=== PATIENT | male | born 1955 | race African-American/Black ===

== ENCOUNTER 2017-02-12 19:18 | Emergency (ER) | payer BC, OTHER ==
[~2017-02-12] VITALS: Ht 182.9 cm; Wt 127.0 kg
[2017-02-12 19:18] VITALS: BP_SYST 150
--- NOTE | 2017-02-12 20:42 | NUR ---
Pt to bed 3 with family
--- NOTE | 2017-02-12 20:56 | NUR ---
ER at bedside examining patient.
[2017-02-12] MEDS ORDERED: KETOROLAC TROMETHAMINE 30 MG VIAL IVP ONE (21:00)
[2017-02-12] MEDS ORDERED: NACL 0.9% 1,000 ML IV ONE (21:00)
--- NOTE | 2017-02-12 21:00 | NUR ---
Pt states that he has been having lethargy with nausea/vomitting and dysuria for one day. Pt appears lethargic and is having 6/10 body pain. Pt states he feels weak. Pt has a low grade fever here. AAOx4. Will continue to monitor. No other injuries or complaints mentioned/noted. No distress noted.
[2017-02-12 22:01] LABS: MEAN CORPUSCULAR HEMOGLOBIN 28 pg (27-31)
[2017-02-12 22:05] LABS: HEMATOCRIT 47.2 % (36-54); HEMOGLOBIN 15.5 g/dL (14.0-18.0); MEAN CORPUSCULAR HGB CONC 33 % (32-36); MEAN CORPUSCULAR VOLUME 84 fL (79.0-98.0); PLATELET COUNT (AUTO) 130 K/uL (130-430); RED BLOOD CELL COUNT(AUTO) 5.61 MIL/uL (4.2-6.2); RED CELL DISTRIBUTION WIDTH 14.9 % (9.0-15.0); WHITE BLOOD COUNT (AUTO) 16.9 K/uL (4.8-10.8)
[2017-02-12 22:06] LABS: CALCIUM 8.9 mg/dL (8.4-11.0); CREATININE 2.24 mg/dL (0.55-1.30); POTASSIUM 3.3 mmol/L (3.5-5.1)
[2017-02-12 22:08] LABS: INR 2.2 (0.80-1.20); PROTHROMBIN TIME 24.7 SECS (9.5-12.5)
--- NOTE | 2017-02-12 22:10 | NUR ---
Patient reports pain 0/10. No adverse reactions noted. Will continue to monitor.
--- NOTE | 2017-02-12 22:10 | NUR ---
[facility] in [facility] - 02/13/17 at 0455 by ASHUTOSH 6
[2017-02-12 22:11] LABS: ALBUMIN 3.5 g/dL (3.4-4.8); TOTAL BILIRUBIN 0.8 mg/dL (0.0-1.0); TOTAL PROTEIN, SERUM 7.7 g/dL (6.4-8.3)
[2017-02-12 22:41] LABS: BILIRUBIN,URINE NEGATIVE (NEGATIVE); BLOOD, URINE 3+ (NEGATIVE); CLARITY/URINE CLEAR (CLEAR); COLOR,URINE YELLOW (YELLOW); GLUCOSE,URINE NEGATIVE (NEGATIVE); KETONES,URINE NEGATIVE (NEGATIVE); LEUKOCYTE ESTERASE ,URINE NEGATIVE (NEGATIVE); NITRITE, URINE NEGATIVE (NEGATIVE); PROTEIN URINE 2+ (NEGATIVE); UROBILINOGEN,URINE 0.2 (0.2-1.0)
[2017-02-12 23:05] LABS: BACTERIA,URINE FEW /HPF (None Seen); WBC,URINE 0-3 /HPF (0-3)
[2017-02-12 23:06] LABS: MUCUS,URINE 1+ /LPF (None Seen); URINE AMORPHOUS URATE 1+ /HPF (None Seen)
[2017-02-12 23:13] LABS: ATYPICAL LYMPHOCYTES % 0 % (0-0); BAND % (MANUAL) 3 % (0-6); BASOPHILS % (MANUAL) 0 % (0-2); EOSINOPHILS % (MANUAL) 0 % (0-7); LYMPHOCYTES % (MANUAL) 8 % (20-46); MONOCYTES % (MANUAL) 5 % (0-11)
[2017-02-12] MEDS ORDERED: PIPERACILLIN/TAZO 3.375 GM in NS 50 ML IV ONE (23:30)
--- NOTE | 2017-02-12 23:30 | NUR ---
Reviewed sepsis protocol with Dr. Saunders. Asked if he would like lactic as well. No change in orders at this time.
[2017-02-12] MEDS ORDERED: PIPERACILLIN/TAZOBACTAM 3.375 GM/VIAL (ZOSYN) IV ONE (23:42)
--- NOTE | 2017-02-13 | NUR ---
IV Abx infusing without difficulty, no redness or swelling noted at site
--- NOTE | 2017-02-13 00:15 | NUR ---
Patient reports pain 0/10. No adverse reactions noted. Will continue to monitor.
--- NOTE | 2017-02-13 01:00 | NUR ---
Pt is sleeping comfortably in bed. Pt reports no pain at this time. No nausea or vomitting. Will continue to monitor. No distress noted.
[2017-02-13] MEDS ORDERED: WARF5TAB2 PO (01:42)
[2017-02-13] MEDS ORDERED: LOSA1TAB35 PO (01:42)
[2017-02-13] MEDS ORDERED: NOR10 PO (01:42)
[2017-02-13] MEDS ORDERED: CARV25TA55 PO (01:42)
--- NOTE | 2017-02-13 04:50 | NUR ---
Patient to be transferred to [facility]. Is being transferred due to higher level of care. Receiving facility has accepting physician and available space. ER physician has signed transfer form. Patient or responsible libertarian has agreed to transfer and signed form. Patient belongings inventoried and will be sent with patient. Copy of nursing notes, lab reports, EKG, Physicians Orders and X-rays to be sent with patient. Report called to Shira SILVA at receiving facility. Receiving physician is Dr. Iniguez. [facility] ambulance service has been called for transfer. ETA is 30 min.
[2017-02-13 05:30] VITALS: BP_SYST 128
== END 2017-02-13 05:30 | disposition short-term general hospital (02) ==
LOC: SED 19:18
DX: N12 Tubulo-interstitial nephritis, not specified as acute or chronic (principal); J45.909 Unspecified asthma, uncomplicated; Z79.899 Other long term (current) drug therapy
CPT/HCPCS: 36415; 71010; 74020; 74176; 80053; 81000; 85007; 85027; 85610; 85730; 87040; 96361; 96365; 96375; 99285; J1885; J2543

== ENCOUNTER 2018-08-21 18:13 | Inpatient (IN) | payer BC ==
[~2018-08-21] VITALS: Ht 182.9 cm; Wt 118.8 kg
[~2018-08-21 18:13] MED LIST: CARV25TA55 PO; LOSA1TAB40 PO; NOR10 PO; WARF5TAB2 PO
[2018-08-21 18:33] VITALS: BP_SYST 146
[2018-08-21] MEDS ORDERED: METO50TA7 PO ×2 (18:59→21:36)
[2018-08-21] MEDS ORDERED: FLUT1DIS3 IH (18:59)
[2018-08-21 19:34] LABS: BASOPHILS # (AUTO) 0.3 K/uL (0.0-0.2); EOSINOPHILS # (AUTO) 0.1 K/uL (0.0-0.4); EOSINOPHILS % (AUTO) 0.9 % (0.0-4.0); HEMATOCRIT 48.1 % (36-54); HEMOGLOBIN 15.8 g/dL (14.0-18.0); LYMPHOCYTES # (AUTO) 1.6 K/uL (1.0-5.5); LYMPHOCYTES % (AUTO) 20.5 % (20.5-51.5); MEAN CORPUSCULAR HEMOGLOBIN 28 pg (27-31); MEAN CORPUSCULAR HGB CONC 33 % (32-36); MEAN CORPUSCULAR VOLUME 85 fL (79.0-98.0); MONOCYTES # (AUTO) 0.6 K/uL (0.0-1.0); MONOCYTES % (AUTO) 7.3 % (1.7-9.3); NEUTROPHILS % (AUTO) 67.3 % (40.0-70.0); PLATELET COUNT (AUTO) 233 K/uL (130-430); RED BLOOD CELL COUNT(AUTO) 5.69 MIL/uL (4.2-6.2); RED CELL DISTRIBUTION WIDTH 15.8 % (9.0-15.0); WHITE BLOOD COUNT (AUTO) 7.6 K/uL (4.8-10.8)
[2018-08-21 19:39] LABS: CALCIUM 8.8 mg/dL (8.4-11.0); CREATININE 2.07 mg/dL (0.55-1.30); POTASSIUM 4.5 mmol/L (3.5-5.1)
[2018-08-21 19:48] LABS: ALBUMIN 2.8 g/dL (3.4-4.8); TOTAL BILIRUBIN 0.5 mg/dL (0.0-1.0)
[2018-08-21] MEDS ORDERED: FLO44 INH (21:36)
[2018-08-21] MEDS ORDERED: WARF5TAB2 PO (21:36)
[2018-08-21] MEDS ORDERED: ENALAPRILAT DIHYDRATE 1.25 MG/ML VIAL IVP ONE (22:00)
[2018-08-21 22:10] LABS: BILIRUBIN,URINE NEGATIVE (NEGATIVE); BLOOD, URINE 2+ (NEGATIVE); CLARITY/URINE CLEAR (CLEAR); COLOR,URINE YELLOW (YELLOW); GLUCOSE,URINE NEGATIVE (NEGATIVE); KETONES,URINE 1+ (NEGATIVE); LEUKOCYTE ESTERASE ,URINE NEGATIVE (NEGATIVE); NITRITE, URINE NEGATIVE (NEGATIVE); PROTEIN URINE 2+ (NEGATIVE); UROBILINOGEN,URINE 0.2 (0.2-1.0)
[2018-08-21] MEDS ORDERED: FUROSEMIDE 40 MG/4 ML VIAL IVP ONE (22:15)
[2018-08-21] MEDS ORDERED: ENALAPRILAT DIHYDRATE 1.25 MG/ML VIAL ONE (22:24)
[2018-08-21 23:03] LABS: BACTERIA,URINE FEW /HPF (None Seen); WBC,URINE 0-3 /HPF (0-3)
[2018-08-21] MEDS ORDERED: cefTRIAXone 1 GM IVPB PREMIX 50 ML IV ONE (23:15)
[2018-08-22] VITALS (9 sets, daily range): BP systolic 121–161
[2018-08-22] MEDS ORDERED: ONDANSETRON HCL 4 MG/2 ML VIAL IVP PRN (00:15)
[2018-08-22] MEDS ORDERED: ACETAMINOPHEN 325 MG TABLET PO PRN (00:15)
[2018-08-22] MEDS ORDERED: ALBUTEROL SULFATE 0.083% 2.5 MG/3 ML VIAL.NEB INH PRN (00:15)
[2018-08-22] MEDS ORDERED: MORPHINE 4 MG/ML INJ. SYRINGE IVP PRN (00:15)
[2018-08-22] MEDS: NORMAL SALINE 5 ML DISP.SYRIN IVF SCH ×3 (05:23→20:42)
[2018-08-22 07:27] LABS: CALCIUM 9.1 mg/dL (8.4-11.0); CREATININE 1.86 mg/dL (0.55-1.30); POTASSIUM 3.9 mmol/L (3.5-5.1)
[2018-08-22 07:36] LABS: ALBUMIN 2.9 g/dL (3.4-4.8); TOTAL BILIRUBIN 0.7 mg/dL (0.0-1.0)
[2018-08-22 07:44] LABS: BASOPHILS # (AUTO) 0.1 K/uL (0.0-0.2); BASOPHILS % (AUTO) 1.2 % (0.0-2.0); EOSINOPHILS # (AUTO) 0.1 K/uL (0.0-0.4); EOSINOPHILS % (AUTO) 0.8 % (0.0-4.0); HEMATOCRIT 47.5 % (36-54); HEMOGLOBIN 15.1 g/dL (14.0-18.0); LYMPHOCYTES # (AUTO) 1.6 K/uL (1.0-5.5); LYMPHOCYTES % (AUTO) 21.6 % (20.5-51.5); MEAN CORPUSCULAR HEMOGLOBIN 27 pg (27-31); MEAN CORPUSCULAR HGB CONC 32 % (32-36); MEAN CORPUSCULAR VOLUME 85 fL (79.0-98.0); MONOCYTES # (AUTO) 0.5 K/uL (0.0-1.0); MONOCYTES % (AUTO) 7.1 % (1.7-9.3); NEUTROPHILS # (AUTO) 4.9 K/uL (1.8-7.7); NEUTROPHILS % (AUTO) 69.3 % (40.0-70.0); RED BLOOD CELL COUNT(AUTO) 5.61 MIL/uL (4.2-6.2); RED CELL DISTRIBUTION WIDTH 15.4 % (9.0-15.0); WHITE BLOOD COUNT (AUTO) 7.2 K/uL (4.8-10.8)
[2018-08-22 07:48] LABS: PLATELET COUNT (AUTO) 207 K/uL (130-430)
[2018-08-22 07:50] LABS: INR 2.4 (0.80-1.20); PROTHROMBIN TIME 23.3 SECS (9.5-12.5)
[2018-08-22] MEDS ORDERED: FLUTICASONE 250 mCg/SALMETEROL 50 mCg DISKUS W.DEV INH SCH (09:00)
[2018-08-22] MEDS ORDERED: FUROSEMIDE 40 MG/4 ML VIAL IVP SCH (09:00)
[2018-08-22] MEDS ORDERED: METOPROLOL SUCCINATE 50 MG TAB.SR.24H (TOPROL XL) PO ONE (09:30)
[2018-08-22] MEDS: FLUTICASONE/VILANTEROL 1 EACH BLST.W.DEV INH SCH (09:43)
[2018-08-22] MEDS: FUROSEMIDE 100 MG in D5W 90 ML IV SCH (10:26)
[2018-08-22] MEDS ORDERED: WARFARIN SODIUM 7.5 MG TABLET PO SCH (18:00)
[2018-08-22] MEDS ORDERED: WARFARIN SODIUM 5 MG TABLET PO SCH (18:00)
[2018-08-22] MEDS: METOPROLOL SUCCINATE 50 MG TAB.SR.24H (TOPROL XL) PO SCH (20:42)
[2018-08-22] MEDS ORDERED: FUROSEMIDE 20 MG/2 ML VIAL ONE (23:55)
[2018-08-22] MEDS ORDERED: FUROSEMIDE 40 MG/4 ML VIAL ONE (23:56)
[2018-08-23] MEDS: FUROSEMIDE 100 MG in D5W 90 ML IV SCH ×2 (01:03→22:14)
[2018-08-23] MEDS: NORMAL SALINE 5 ML DISP.SYRIN IVF SCH ×3 (05:45→20:30)
[2018-08-23 07:12] LABS: INR 2.2 (0.80-1.20); PROTHROMBIN TIME 21.4 SECS (9.5-12.5)
[2018-08-23] MEDS ORDERED: WARFARIN SODIUM 3 MG TABLET PO SCH (07:37)
[2018-08-23 08:00] VITALS: BP_SYST 139
[2018-08-23] MEDS: FLUTICASONE/VILANTEROL 1 EACH BLST.W.DEV INH SCH (08:00)
[2018-08-23] MEDS: METOPROLOL SUCCINATE 50 MG TAB.SR.24H (TOPROL XL) PO SCH ×2 (08:00→20:30)
[2018-08-23 11:57] LABS: BASOPHILS # (AUTO) 0.1 K/uL (0.0-0.2); BASOPHILS % (AUTO) 1.8 % (0.0-2.0); EOSINOPHILS # (AUTO) 0.2 K/uL (0.0-0.4); EOSINOPHILS % (AUTO) 3.6 % (0.0-4.0); HEMATOCRIT 50.4 % (36-54); HEMOGLOBIN 16.6 g/dL (14.0-18.0); LYMPHOCYTES # (AUTO) 1.6 K/uL (1.0-5.5); MEAN CORPUSCULAR HEMOGLOBIN 28 pg (27-31); MEAN CORPUSCULAR HGB CONC 33 % (32-36); MEAN CORPUSCULAR VOLUME 84 fL (79.0-98.0); MONOCYTES # (AUTO) 0.5 K/uL (0.0-1.0); MONOCYTES % (AUTO) 6.9 % (1.7-9.3); NEUTROPHILS # (AUTO) 4.4 K/uL (1.8-7.7); NEUTROPHILS % (AUTO) 63.7 % (40.0-70.0); PLATELET COUNT (AUTO) 214 K/uL (130-430); RED BLOOD CELL COUNT(AUTO) 6.03 MIL/uL (4.2-6.2); RED CELL DISTRIBUTION WIDTH 15.4 % (9.0-15.0); WHITE BLOOD COUNT (AUTO) 6.8 K/uL (4.8-10.8)
[2018-08-23 11:58] LABS: CALCIUM 8.8 mg/dL (8.4-11.0); CREATININE 1.86 mg/dL (0.55-1.30); POTASSIUM 3.6 mmol/L (3.5-5.1)
[2018-08-23 12:03] LABS: TOTAL BILIRUBIN 0.9 mg/dL (0.0-1.0)
[2018-08-23] MEDS ORDERED: METOLAZONE 5 MG TABLET PO ONE (13:30)
[2018-08-23 16:00] VITALS: BP_SYST 149
[2018-08-23 20:00] VITALS: BP_SYST 139
[2018-08-23 23:00] VITALS: BP_SYST 132
[2018-08-24] MEDS: NORMAL SALINE 5 ML DISP.SYRIN IVF SCH (06:14)
[2018-08-24 07:21] LABS: INR 2.2 (0.80-1.20); PROTHROMBIN TIME 21.5 SECS (9.5-12.5)
[2018-08-24 07:25] LABS: BASOPHILS # (AUTO) 0.1 K/uL (0.0-0.2); BASOPHILS % (AUTO) 2.2 % (0.0-2.0); EOSINOPHILS # (AUTO) 0.3 K/uL (0.0-0.4); HEMATOCRIT 51.9 % (36-54); LYMPHOCYTES # (AUTO) 1.9 K/uL (1.0-5.5); LYMPHOCYTES % (AUTO) 28.1 % (20.5-51.5); MEAN CORPUSCULAR HEMOGLOBIN 28 pg (27-31); MEAN CORPUSCULAR HGB CONC 33 % (32-36); MEAN CORPUSCULAR VOLUME 84 fL (79.0-98.0); MONOCYTES # (AUTO) 0.5 K/uL (0.0-1.0); MONOCYTES % (AUTO) 7.1 % (1.7-9.3); NEUTROPHILS # (AUTO) 3.9 K/uL (1.8-7.7); NEUTROPHILS % (AUTO) 58.6 % (40.0-70.0); PLATELET COUNT (AUTO) 229 K/uL (130-430); RED BLOOD CELL COUNT(AUTO) 6.16 MIL/uL (4.2-6.2); RED CELL DISTRIBUTION WIDTH 15.4 % (9.0-15.0); WHITE BLOOD COUNT (AUTO) 6.7 K/uL (4.8-10.8)
[2018-08-24 07:28] LABS: CALCIUM 9.2 mg/dL (8.4-11.0); CREATININE 2.19 mg/dL (0.55-1.30); POTASSIUM 3.4 mmol/L (3.5-5.1)
[2018-08-24 08:30] VITALS: BP_SYST 130
[2018-08-24] MEDS ORDERED: FURO-149 PO (08:51)
[2018-08-24] MEDS ORDERED: LISI10TA5 PO (08:51)
[2018-08-24] MEDS: METOPROLOL SUCCINATE 50 MG TAB.SR.24H (TOPROL XL) PO SCH (09:11)
[2018-08-24] MEDS: FLUTICASONE/VILANTEROL 1 EACH BLST.W.DEV INH SCH (09:11)
[2018-08-24 10:29] VITALS: BP_SYST 130
[2018-08-24 12:20] VITALS: BP_SYST 127
== END 2018-08-24 15:22 | disposition home or self-care (01) | DRG 291 ==
LOC: SED 18:13 → STU 23:50
PROVIDERS: ADMIT Internal Medicine; ATTEND Internal Medicine
DX: I13.0 Hypertensive heart and chronic kidney disease with heart failure and stage 1 through stage 4 chronic kidney disease, or unspecified chronic kidney disease (principal); I50.21 Acute systolic (congestive) heart failure; J18.9 Pneumonia, unspecified organism; N17.0 Acute kidney failure with tubular necrosis; E46 Unspecified protein-calorie malnutrition; I42.9 Cardiomyopathy, unspecified; E11.22 Type 2 diabetes mellitus with diabetic chronic kidney disease; E11.65 Type 2 diabetes mellitus with hyperglycemia; I48.2 Chronic atrial fibrillation; J45.909 Unspecified asthma, uncomplicated; N18.3 Chronic kidney disease, stage 3 (moderate); E88.09 Other disorders of plasma-protein metabolism, not elsewhere classified; N40.0 Benign prostatic hyperplasia without lower urinary tract symptoms; M79.89 Other specified soft tissue disorders; R31.9 Hematuria, unspecified; Z79.01 Long term (current) use of anticoagulants; Z82.49 Family history of ischemic heart disease and other diseases of the circulatory system; Z87.891 Personal history of nicotine dependence; Z79.899 Other long term (current) drug therapy; Z68.35 Body mass index [BMI] 35.0-35.9, adult
CPT/HCPCS: 36415; 71045; 71046-TC; 76770; 80053; 81000-TC; 83880; 84484; 85025; 85610-TC; 87040-TC; 87081; 93005; 93306; 96365; 96375; 99285; G0378; J0696; J1940; J7060

== ENCOUNTER 2018-09-21 21:00 | Emergency (ER) | payer BC ==
[~2018-09-21] VITALS: Ht 182.9 cm; Wt 117.0 kg
[~2018-09-21 21:00] MED LIST changes: -CARV25TA55 PO; +FLO44 INH; +FLUT1DIS3 IH; +FURO-149 PO; +LISI10TA5 PO; -LOSA1TAB40 PO; +METO50TA7 PO; -NOR10 PO
[2018-09-21 21:30] VITALS: BP_SYST 154
--- NOTE | 2018-09-21 21:39 | NUR ---
Patient to ER H1 to gown for evaluation. Side rails up.
--- NOTE | 2018-09-21 21:45 | NUR ---
ER Dr. Zapien examining patient.
--- NOTE | 2018-09-21 22:04 | NUR ---
Pt states he has history of high blood pressure of 150/110 for last 4 weeks. Being followed by [facility]. Asha blood pressure went up to 174/144, he then went to Urgent Care who then referred him to the closest ER.
--- NOTE | 2018-09-21 22:16 | NUR ---
Patient given written and verbal discharge instructions and verbalizes understanding. ER MD discussed with patient the results and treatment provided. Patient in stable condition. ID arm band removed. Patient educated on pain management and to follow up with PMD. Pain Scale 0/10. Opportunity for questions provided and answered. Medication side effect fact sheet provided .
[2018-09-21 22:19] VITALS: BP_SYST 152
== END 2018-09-21 22:19 | disposition home or self-care (01) ==
LOC: SED 21:00
DX: I10 Essential (primary) hypertension (principal); I48.91 Unspecified atrial fibrillation; J45.909 Unspecified asthma, uncomplicated; E11.9 Type 2 diabetes mellitus without complications; Z79.899 Other long term (current) drug therapy
CPT/HCPCS: 99283

== ENCOUNTER 2024-05-03 05:33 | Emergency (ER) | payer BC, MEDICARE ==
[~2024-05-03] VITALS: Ht 180.3 cm; Wt 117.9 kg
[~2024-05-03 05:33] MED LIST changes: +LISI10TA29 PO; -LISI10TA5 PO
[2024-05-03 05:41] VITALS: BP_SYST 142; PULSE 85; RESP 16; TEMP 97.8; O2SAT 96
[2024-05-03] MEDS: ALBUTEROL SULFATE 0.083% 2.5 MG/3 ML VIAL.NEB INH ONE (06:03)
[2024-05-03] MEDS: methylPREDNISolone SOD SUCC/PF 62.5 MG/ML VIAL IVP ONE (06:20)
[2024-05-03] MEDS: MAGNESIUM SULFATE 50 ML IV ONE (06:25)
[2024-05-03 06:53] LABS: BASOPHILS % (AUTO) 0.7 % (0.0-2.0); EOSINOPHILS # (AUTO) 0.2 K/uL (0.0-0.4); EOSINOPHILS % (AUTO) 4.9 % (0.0-4.0); HEMATOCRIT 43.2 % (36-54); HEMOGLOBIN 14.3 g/dL (14.0-18.0); LYMPHOCYTES # (AUTO) 1.2 K/uL (1.0-5.5); LYMPHOCYTES % (AUTO) 23.4 % (20.5-51.5); MEAN CORPUSCULAR HEMOGLOBIN 28 pg (27-31); MEAN CORPUSCULAR HGB CONC 33 % (32-36); MEAN CORPUSCULAR VOLUME 84 fL (79.0-98.0); MONOCYTES # (AUTO) 0.3 K/uL (0.0-1.0); MONOCYTES % (AUTO) 6.8 % (1.7-9.3); NEUTROPHILS # (AUTO) 3.2 K/uL (1.8-7.7); NEUTROPHILS % (AUTO) 64.2 % (40.0-70.0); PLATELET COUNT (AUTO) 182 K/uL (130-430); RED BLOOD CELL COUNT(AUTO) 5.17 MIL/uL (4.2-6.2); RED CELL DISTRIBUTION WIDTH 15.8 % (9.0-15.0); WHITE BLOOD COUNT (AUTO) 5.1 K/uL (4.8-10.8)
[2024-05-03 07:11] LABS: ALBUMIN 3.4 g/dL (3.4-4.8); BILIRUBIN,DIRECT 0.1 mg/dL (0.0-0.3); CALCIUM 8.8 mg/dL (8.4-11.0); CREATININE 1.88 mg/dL (0.55-1.30); POTASSIUM 3.8 mmol/L (3.5-5.1); TOTAL BILIRUBIN 0.5 mg/dL (0.0-1.0); TOTAL PROTEIN, SERUM 6.8 g/dL (6.4-8.3)
[2024-05-03] MEDS ORDERED: AZIT500T PO (07:45)
[2024-05-03] MEDS ORDERED: PRED20TA PO (07:45)
[2024-05-03 07:53] LABS: INR 2.6 (0.80-1.20); PROTHROMBIN TIME 25.7 SECS (9.5-12.5)
[2024-05-03 08:06] VITALS: BP_SYST 131; PULSE 76; RESP 22; TEMP 97.8; O2SAT 96
== END 2024-05-03 08:03 | disposition home or self-care (01) ==
LOC: SED 05:33
DX: J45.901 Unspecified asthma with (acute) exacerbation (principal); I11.0 Hypertensive heart disease with heart failure; I50.9 Heart failure, unspecified; E11.9 Type 2 diabetes mellitus without complications; I48.91 Unspecified atrial fibrillation; Z79.01 Long term (current) use of anticoagulants; Z79.51 Long term (current) use of inhaled steroids; Z79.52 Long term (current) use of systemic steroids; Z79.899 Other long term (current) drug therapy
CPT/HCPCS: 36415; 71045; 80048; 80076; 83880; 85025; 85610; 85730; 93005; 94640; 96365; 96366; 96375; 99285; J2930; J3475